=== PATIENT | female | born 1985 | race Two or more races ===

== ENCOUNTER 2020-12-25 09:58 | Emergency (ER) | payer MEDICAID, OTHER ==
[~2020-12-25] VITALS: Ht 170.2 cm; Wt 54.4 kg
[2020-12-25 10:26] VITALS: BP 125/87
[2020-12-25] MEDS ORDERED: LIDOCAINE 2% (LOCAL ANESTH.) PF 5ml SDV ONE (10:56)
[2020-12-25] MEDS ORDERED: CLINDAMYCIN 600 MG/4 ML VL IM ONE (11:00)
[2020-12-25] MEDS ORDERED: cefTRIAXone SOD 1,000 MG VL IM ONE (11:00)
== END 2020-12-25 11:37 | disposition home or self-care (01) ==
LOC: ER 09:58
DX: L03.116 Cellulitis of left lower limb (principal); Z90.49 Acquired absence of other specified parts of digestive tract; Z90.89 Acquired absence of other organs
CPT/HCPCS: 96372; 99284; J0696; J2001

== ENCOUNTER 2024-04-27 13:38 | Emergency (ER) | payer MEDICAID, OTHER ==
[~2024-04-27] VITALS: Ht 170.2 cm; Wt 63.0 kg
--- NOTE | 2024-04-27 13:53 | ECG ---
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
--- NOTE | 2024-04-27 13:57 | ED.PDOC ---
History of Present Illness HPI Comments 38 year old female presents to the ED with chief complaint of chest pain. Patient reports that she has been experiencing chest pain with associated tingling to the feet, hands, and shoulders along with tunnel vision this morning. Patient relays that it happened spontaneously and she currently only has chest pressure now. Patient states these symptoms occurred last week, but has never happened before prior. Patient denies any recent stressors or history of panic attacks. Patient notes she took 10mg of Propranolol prior to coming into the ED. Patient denies any SOB, dizziness, N/V, headache, fever, chills, or numbness. 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 Family History Family History: Reviewed,noncontributory to illness Social History Smoker: Non-Smoker Alcohol: Denies ETOH Use Drugs: Denies Drug Use Lives In: Home Constitutional: denies: chills, diaphoresis, fatigue, fever, malaise, sweats, weakness, others EENTM: reports: others (Tunnel vision); denies: blurred vision, double vision, ear bleeding, ear discharge, ear drainage, ear pain, ear ringing, eye pain, eye redness, hearing loss, mouth pain, mouth swelling, nasal discharge, nose bleeding, nose congestion, nose pain, photophobia, tearing, throat pain, throat swelling, voice changes Respiratory: denies: cough, hemoptysis, orthopnea, SOB at rest, shortness of breath, SOB with excertion, stridor, wheezing, others Cardiovascular: reports: chest pain; denies: dizzy spells, diaphoresis, Dyspnea on exertion, edema, irregular heart beat, left arm pain, lightheadedness, palpitations, PND, syncope, others Gastrointestinal: denies: abdomen distended, abdominal pain, blood streaked bowels, constipated, diarrhea, dysphagia, difficulty swallowing, hematemesis, melena, nausea, poor appetite, poor fluid intake, rectal bleeding, rectal pain, vomiting, others Genitourinary: denies: abnormal vagina bleeding, burning, dyspareunia, dysuria, flank pain, frequency, hematuria, incontinence, pain, , vagina discharge, urgency, others Neurological: reports: tingling; denies: dizziness, fainting, headache, left sided numbness, left sided weakness, numbness, paresthesia, pre-existing deficit, right sided numbness, right sided weakness, seizure, speech problems, tremors, weakness, others Musculoskeletal: denies: back pain, gout, joint pain, joint swelling, muscle pain, muscle stiffness, neck pain, others Integumetry: denies: bruises, change in color, change in hair/nails, dryness, laceration, lesions, lumps, rash, wounds, others Allergic/Immunocompromised: denies: Difficulty Healing, Frequent Infections, Hives, Itching, others Hematologic/Lymphatic: denies: anemia, blood clots, easy bleeding, easy bruising, swollen glands, others Endocrine: denies: excessive hunger, excessive sweating, excessive thirst, excessive urination, flushing, intolerance to cold, intolerance to heat, unexplained weight gain, unexplained weight loss, others Psychiatric: denies: anxiety, bipolar disorder, depression, hopeless, panic disorder, schizophrenia, sleepless, suicidal, others All Other Systems: Reviewed and Negative Physical Exam General Appearance: No Apparent Distress, Normal, Other (Anxious appearing) HEENT: Normal ENT Inspection, PERRL/EOMI Neck: Full Range of Motion, Non-Tender, Normal, Normal Inspection Respiratory: Chest Non-Tender, Lungs Clear, No Accessory Muscle Use, No Respiratory Distress, Normal Breath Sounds Cardiovascular: No Edema, No JVD, No Murmur, No Gallop, Normal Peripheral Puls es, Regular Rate/Rhythm Breast Exam: Deferred Gastrointestinal: No Organomegaly, Non Tender, No Pulsatile Mass, Normal Bowel Sounds, Soft Genitalia: Deferred Pelvic: Deferred Rectal: Deferred Extremities: No calf tenderness, Normal capillary refill, Normal inspection, Normal range of motion, Non-tender, No pedal edema Musculoskeletal : Apperance: Normal Neurologic: Alert, dumper operator II-XII nml as Tested, No Motor Deficits, Normal Affect, Normal Mood, No Sensory Deficits Cerebellar Function: Normal Reflexes: Normal Skin: Dry, Normal Color, Warm Lymphatic: No Adenopathy Was a procedure done? Was a procedure done?: No Differential Dx Considerations may include: anxiety, panic attack X-Ray, Labs, Meds, VS Vital Signs Date Time Temp Pulse Resp B/P (MAP) Pulse Ox O2 Delivery O2 Flow Rate FiO2 04/27/24 13:56 98.7 75 18 147/103 (118) 100 04/27/24 13:42 75 Lab Test 04/27/24 14:50 04/27/24 14:00 Range/Units Troponin I High Sensitivity Pending < 3 L </=34 ng/L White Blood Count 11.1 H 4.4-10.8 10^3/uL Red Blood Count 4.46 4.0-5.20 10^6/uL Hemoglobin 14.2 12.2-16.2 g/dL Hematocrit 41.0 36.0-46.0 % Mean Corpuscular Volume 91.8 80.0-100.0 fL Mean Corpuscular Hemoglobin 31.8 28.0-32.0 pg Mean Corpuscular Hemoglobin Concent 34.6 32.0-36.0 g/dL Red Cell Distribution Width 12.2 11.8-14.3 % Platelet Count 398 140-450 10^3/uL Mean Platelet Volume 7.9 6.9-10.8 fL Neutrophils (%) (Auto) 50.8 37.0-80.0 % Lymphocytes (%) (Auto) 41.0 10.0-50.0 % Monocytes (%) (Auto) 6.3 0.0-12.0 % Eosinophils (%) (Auto) 1.3 0.0-7.0 % Basophils (%) (Auto) 0.6 0.0-2.0 % Neutrophils # (Auto) 5.6 1.6-8.6 10 ^3/uL Lymphocytes # (Auto) 4.6 0.4-5.4 10 ^3/uL Monocytes # (Auto) 0.7 0-1.3 10 ^3/uL Eosinophils # (Auto) 0.1 0-0.8 10 ^3/uL Basophils # (Auto) 0.1 0-0.2 10 ^3/uL Nucleated Red Blood Cells 0.1 % Sodium Level 137 136-145 mmol/L Potassium Level 4.3 3.5-5.1 mmol/L Chloride Level 104 98-107 mmol/L Carbon Dioxide Level 24 20-31 mmol/L Anion Gap 9 5-15 Blood Urea Nitrogen 15 9-23 mg/dL Creatinine 1.20 H 0.550-1.02 mg/dL Glomerular Filtration Rate Calc 60 >90 mL/min BUN/Creatinine Ratio 12.5 10.0-20.0 Serum Glucose 112 H 74-106 mg/dL Calcium Level 10.7 H 8.7-10.4 mg/dL Total Bilirubin 0.4 0.2-1.0 mg/dL Aspartate Amino Transferase (AST) 16 13-40 U/L Alanine Aminotransferase (ALT) 13 7-40 U/L Alkaline Phosphatase 47 46-116 U/L Total Protein 7.4 5.7-8.2 g/dL Albumin 4.5 3.2-4.8 g/dL Thyroid Stimulating Hormone (TSH) 3.23 0.55-4.78 uIU/mL Time of 1ST Reevaluation: 14:52 Reevaluation 1ST: Improved Time of 2ND Reevaluation: 15:24 Reevaluation 2ND: Improved Patient Education/Counseling: Diagnosis, Treatment Family Education/Counseling: No Family Present Departure 1 Departure Time of Disposition: 15:24 Impression: Primary Impression: Panic attack Disposition: 01 HOME / SELF CARE / HOMELESS Condition: Stable Additional Instructions: Thank you for visiting our Emergency Room. I wish you full and complete recovery. Please follow the following instructions: 1. Take your medication bottles with you to EVERY DOCTOR'S VISIT (including your primary doctor). 2. Please follow up with your primary doctor in 2-3 days or sooner if symptoms do not improve. 3. Please read all the papers given to you at the time of the discharge so that you understand your condition better. 4. Please note that the emergency room visits are focused and not necessarily comprehensive. Therefore, it is possible that some occult medical conditions may go undiagnosed in the ER. 5. The emergency room visits are not and should not be thought of as repl acement for regular visits with your primary doctor. 6. Therefore, it is absolutely critical that you follows up with your primary doctor on regular basis to make sure you receives a complete and comprehensive care. 7. I recommended the you take the hospital discharge papers to your primary care physician and other doctors' offices with you. 8. Go to your nearest emergency room if you think your condition gets worse or you think your condition is an emergency. e-Prescriptions Hydroxyzine Hcl (Hydroxyzine Hcl) 25 Mg Tab 25 MG PO TIDPRN PRN for 10 Days, #30 TAB Prov: TRAE ARGUELLES MD 04/27/24 Discharged With: Self Critical Care Note Critical Care Time?: No Stability Stability form required: No Heart Score Heart Score: Heart Score Response (Comments) Value History Slightly Suspicious 0 EKG Normal 0 Age <45 0 Risk Factors No known risk factors 0 Troponin Normal limit 0 Total 0 I personally scribed for TRAE ARGUELLES MD ([email or web address]) on 04/27/24 at 13:57. Electronically submitted by Mukul Aleman ([email or web address]). TRAE ARGUELLES MD Apr 27, 2024 13:57
[2024-04-27 14:18] LABS: Basophils # (auto) 0.1 10 ^3/uL (0-0.2); Basophils % (auto) 0.6 % (0.0-2.0); Eosinophils # (auto) 0.1 10 ^3/uL (0-0.8); Eosinophils % (auto) 1.3 % (0.0-7.0); Hemoglobin 14.2 g/dL (12.2-16.2); Lymphocytes # (auto) 4.6 10 ^3/uL (0.4-5.4); Mean Corpuscular Hemoglobin 31.8 pg (28.0-32.0); Mean Corpuscular Hgb Conc. 34.6 g/dL (32.0-36.0); Mean Corpuscular Volume 91.8 fL (80.0-100.0); Monocytes # (auto) 0.7 10 ^3/uL (0-1.3); Monocytes % (auto) 6.3 % (0.0-12.0); Neutrophils # (auto) 5.6 10 ^3/uL (1.6-8.6); Neutrophils % (auto) 50.8 % (37.0-80.0); Nucleated Red Blood Cells % 0.1 %; Platelet Count (auto) 398 10^3/uL (140-450); Red Blood Cells 4.46 10^6/uL (4.0-5.20); Red Cell Distribution Width 12.2 % (11.8-14.3); White Blood Cell 11.1 10^3/uL (4.4-10.8)
[2024-04-27 14:43] LABS: Alanine Aminotransferase 13 U/L (7-40); Albumin 4.5 g/dL (3.2-4.8); Alkaline Phosphatase 47 U/L (46-116); Anion Gap 9 (5-15); Aspartate Aminotransferase 16 U/L (13-40); BUN/Creatinine Ratio 12.5 (10.0-20.0); Bilirubin, Total 0.4 mg/dL (0.2-1.0); Blood Urea Nitrogen 15 mg/dL (9-23); Carbon Dioxide 24 mmol/L (20-31); Chloride 104 mmol/L (98-107); Potassium 4.3 mmol/L (3.5-5.1); Sodium 137 mmol/L (136-145); Total Protein 7.4 g/dL (5.7-8.2)
[2024-04-27 14:46] LABS: Calcium 10.7 mg/dL (8.7-10.4); Glucose 112 mg/dL (74-106)
[2024-04-27] MEDS ORDERED: HYDR-3682 PO (15:29)
[2024-04-27 16:13] VITALS: BP 135/86; PULSE 64; RESP 16; TEMP 98.4; O2SAT 96
[2024-04-27] MEDS: LORazepam 2MG/ML-1ML VIAL IM ONE (16:29)
== END 2024-04-27 16:36 | disposition home or self-care (01) ==
LOC: ER 13:38
DX: F41.0 Panic disorder [episodic paroxysmal anxiety] (principal); Z90.49 Acquired absence of other specified parts of digestive tract; Z90.89 Acquired absence of other organs
CPT/HCPCS: 36415; 80053; 84443; 84484; 85025; 93005; 96372; 99284; J2060; 96374